=== PATIENT | male | born 1975 | race Hispanic/Latino ===

== ENCOUNTER 2018-01-15 06:59 | Emergency (ER) | payer OTHER ==
[~2018-01-15] VITALS: Ht 177.8 cm; Wt 105.2 kg
--- NOTE | 2018-01-15 07:13 | ED GI/GU/ABDOMINAL COMPLAINT ---
History of Present Illness General Chief Complaint: Trunk Injury Stated Complaint: ?RIB FRACTURE S/P FALL YESTERDY Source: patient Exam Limitations: no limitations Vital Signs & Intake/Output Vital Signs & Intake/Output Vital Signs Date Time Temp Pulse Resp B/P B/P Pulse O2 O2 Flow FiO2 Mean Ox Delivery Rate 01/15 0938 98.0 60 18 141/90 97 Room Air 01/15 0702 98.3 67 16 149/83 98 Room Air Allergies Coded Allergies: No Known Allergies (01/15/18) Reconcile Medications Oxycodone HCl/Acetaminophen (Percocet 5-325 MG Tablet) 5 MG-325 MG TABLET 1-2 TAB PO Q6P PRN PAIN Triage Note: PT STATES THAT WHILE RIDING LAWN MACHINE AT WORK YESTERDAY THE MACHINE TIPPED AND HE FELL OFF ONTO TO HIS R SIDE, COMPLAINS OF R SIDE RIB PAIN THAT HAS BEEN CONSTANT, PAIN INCREASES WITH COUGHING AND MOVEMENT Triage Nurses Notes Reviewed? yes HPI: Patient was at work yesterday on a riding mower when the mower tipped and he and the mower pulled down an embankment. Patient felt fine at first but by the time he got home he began to develop a sharp pain on the right side of his abdomen. The pain steadily increased throughout the night. The pain is currently a 10 out of 10 and increases with movement and coughing. The pain radiates up into his right lower chest. He denies any shortness of breath. There is no nausea or vomiting. There is no dysuria or hematuria. He denies any head injury or headache. There is no neck pain. There is no weakness or numbness. Past History Travel History Traveled to [place] past 21 day No Medical History Any Pertinent Medical History? none Neurological: NONE EENT: NONE Cardiovascular: NONE Respiratory: NONE Gastrointestinal: NONE Hepatic: NONE Renal: NONE Musculoskeletal: NONE Psychiatric: NONE Endocrine: NONE Blood Disorders: NONE Cancer(s): NONE COURT SECURITY OFFICER/Reproductive: NONE Surgical History Surgical History: non-contributory Psychosocial History What is your primary language Malay Tobacco Use: Never used ETOH Use: denies use Illicit Drug Use: denies illicit drug use Family History Hx Contributory? No Review of Systems Review of Systems Constitutional: Reports: no symptoms. EENTM: Reports: no symptoms. Respiratory: Reports: see HPI, cough. Cardiovascular: Reports: no symptoms. GI: Reports: see HPI, abdominal pain. Genitourinary: Reports: no symptoms. Musculoskeletal: Reports: no symptoms. Skin: Reports: no symptoms. Neurological/Psychological: Reports: no symptoms. Hematologic/Endocrine: Reports: no symptoms. Immunologic/Allergic: Reports: no symptoms. All Other Systems: Reviewed and Negative Physical Exam Physical Exam General Appearance: well developed/nourished, alert, awake, anxious, moderate distress Head: atraumatic, normal appearance Eyes: Bilateral: PERRL, EOMI. Ears, Nose, Throat, Mouth: hearing grossly normal, moist mucous membrane Neck: normal inspection, supple, full range of motion, normal alignment, no midline tenderness Respiratory: normal breath sounds, chest non-tender, no respiratory distress, lungs clear Cardiovascular: regular rate/rhythm, normal peripheral pulses Gastrointestinal: normal bowel sounds, soft, guarding, tenderness Back: normal inspection, normal range of motion, NOCVA TENDERNESS Extremities: normal range of motion, pelvis stable Neurologic/Psych: no motor/sensory deficits, awake, alert, oriented x 3, normal gait, normal mood/affect Skin: intact, normal color, warm/dry, SCRATCH TO RIGHT FLANK Core Measures ACS in differential dx? No Sepsis Present: No Sepsis Focused Exam Completed? No Progress Differential Diagnosis: TRAUMATIC INJURY Plan of Care: Orders Procedure Date/time Status URINALYSIS 01/16 712 Complete LIPASE 01/15 07 Complete COMPREHENSIVE METABOLIC PANEL 01/16 712 Complete CBC WITHOUT DIFFERENTIAL 01/16 712 Complete AMYLASE 01/15 0712 Complete Laboratory Tests 01/15/18 0823: Urine Color YEL, Urine Clarity CLEAR, Urine pH 6.0, Ur Specific [place] 1.020, Urine Protein NEG, Urine Ketones NEG, Urine Nitrite NEG, Urine Bilirubin NEG, Urine Urobilinogen 0.2, Ur Leukocyte Esterase NEG, Ur Microscopic EXAM NOT REQUIRED, Urine Hemoglobin NEG, Urine Glucose NEG 01/15/18 0735: Anion Gap 10, Estimated GFR > 60, BUN/Creatinine Ratio 17.5, Glucose 109 H, Calcium 8.8, Total Bilirubin 0.5, AST 25, ALT 34, Alkaline Phosphatase 103, Total Protein 6.6, Albumin 3.9, Globulin 2.7, Albumin/Globulin Ratio 1.4, Amylase 40, Lipase 84, CBC w Diff NO MAN DIFF REQ, RBC 5.76, MCV 82.0, MCH 27.8, MCHC 33.9, RDW 13.0, MPV 7.9, Gran % 62.7, Lymphocytes % 25.4, Monocytes % 8.4, Eosinophils % 2.9, Basophils % 0.6, Absolute Granulocytes 5.6, Absolute Lymphocytes 2.2, Absolute Monocytes 0.7 H, Absolute Eosinophils 0.3, Absolute Basophils 0 Diagnostic Imaging: Viewed by Me: CT Scan. Discussed w/RAD: CT Scan. Radiology Impression: PATIENT: ILANA BERMUDEZ PRESENT AGE: 42 PATIENT ACCOUNT NO: [id number] : 73 LOCATION: [facility] ORDERING PHYSICIAN: Rudolph Bourgeois MD SERVICE DATE: 01/15/18 EXAM TYPE: CAT - CT ABD & PELVIS W IV CONTRAST; CT CHEST W IV CONTRAST EXAMINATION: CT CHEST WITH CONTRAST CT ABDOMEN AND PELVIS WITH CONTRAST CLINICAL INFORMATION: Trauma. Right-sided chest and abdominal pain. COMPARISON: Chest x-ray of 10/22/2012. TECHNIQUE: Multidetector volumetric CT imaging of the chest, abdomen and pelvis was acquired following intravenous administration of 94 mL of Optiray 320. Post processing was performed at a dedicated workstation. Multiplanar reformatted images are submitted. DLP: 882.23 mGy-cm FINDINGS: CHEST: The visualized thyroid gland is unremarkable. There is no evidence of pathologically enlarged mediastinal, hilar or axillary lymph nodes. A right paratracheal lymph node measures 0.8 cm in short axis. There is no evidence of mediastinal vascular injury. Cardiac size is normal. Aorta and central pulmonary arteries are normal in caliber and well opacified. No mediastinal hematoma. No pericardial effusion. Trachea and central bronchi are well patent. No evidence of pleural effusions. The chest wall soft tissues are unremarkable. No pneumothorax. A small, ill- defined pleural ground-glass opacity is noted in the right upper lobe centrally measuring 0.5 x 0.5 x 0.9 cm (series 5, image 146; series 602, image 52). A few tiny nodular densities are noted in the left upper lobe centrally (series 5, images 186 through 196). ABDOMEN AND PELVIS: The liver is normal in size, shape and attenuation. No focal liver lesion or biliary ductal dilatation. The gallbladder is unremarkable without evidence of radiopaque stones, wall thickening or pericholecystic inflammatory changes. The spleen, adrenal glands and pancreas are unremarkable. The kidneys are normal in size, shape and attenuation. There is symmetrical enhancement of the kidneys. No radiopaque urinary tract calculi, hydroureteronephrosis or perinephric stranding. The urinary bladder is unremarkable. Prostate and seminal vesicles are unremarkable. The colon is normal in caliber. No evidence of colonic wall thickening or pericolonic fat stranding. An appendix is normal. The small bowel and stomach are not dilated. There is no evidence of free intraperitoneal air or fluid. No pathologically enlarged lymph nodes are noted. The vasculature is unremarkable. No evidence of acute contrast extravasation. There are small bilateral fat- containing inguinal hernias, left larger than right measuring 3.3 cm. OSSEOUS STRUCTURES: There is no evidence of acute osseous abnormality in the chest, abdomen and pelvis. 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 Mild degenerative changes in the upper to mid thoracic spine. Mild degenerative changes are noted at L5-S1 with moderate narrowing of the disc space, posterior disc osteophyte complex and vacuum disc phenomenon. IMPRESSION: 1. No evidence of acute traumatic injury in the chest, abdomen and pelvis. 2. A 0.5 x 0.5 x 0.9 cm ground-glass opacity in the right upper lobe and a few tiny nodular opacities in the left upper lobe are nonspecific and likely inflammatory/infectious in etiology. According to the UPDATED 2017 Fleischner Society recommendations, the advised follow up imaging for a single pure ground-glass nodule measuring 6 mm or greater is: CT at 6-12 months to confirm persistence, then CT every 2 years until 5 years if it persists. DICTATED BY: Nidhi Fry MD DATE/TIME DICTATED:01/15/18943 COMMERCIAL SALES DIRECTOR:JASVIR DATE/TIME TRANSCRIBED:01/15/18943 CONFIDENTIAL, DO NOT COPY WITHOUT APPROPRIATE AUTHORIZATION. <Electronically signed in Other Vendor System> SIGNED BY: Nidhi Fry MD 01/15/18 1017 Initial ED EKG: none Comments: PT HAS BEEN UPDATED ON LAB AND CT RESULTS. PT IS STABLE FOR DISCAHRGE Departure Departure Disposition: HOME OR SELF CARE Condition: Stable Clinical Impression Primary Impression: Abdominal pain, unspecified site Secondary Impressions: Chest wall pain Additional Instructions: RETURN IF SYMPTOMS WORSEN OR FOR ANY CONCERNS RETURN IF YOU FEEL SHORTENSS F BREATH OR FOR ANY CONCERNS Departure Forms: Customer Survey General Discharge Information Industrial Accident Report Prescriptions: Current Visit Scripts Oxycodone HCl/Acetaminophen (Percocet 5-325 MG Tablet) 1-2 TAB PO Q6P PRN PAIN #12 TAB
[2018-01-15 07:41] LABS: ABSOLUTE BASOPHIL COUNT 0 /CUMM (0.0-0.2); ABSOLUTE EOSINOPHIL COUNT 0.3 /CUMM (0.0-0.7); ABSOLUTE GRANULOCYTE CT 5.6 /CUMM (1.4-6.5); ABSOLUTE LYMPH COUNT 2.2 /CUMM (1.2-3.4); ABSOLUTE MONOCYTE COUNT 0.7 /CUMM (0.10-0.60); BASOPHIL % 0.6 % (0.0-2.0); EOSINOPHIL % 2.9 % (0-5); GRANULOCYTE % 62.7 % (42.2-75.2); HEMATOCRIT 47.3 % (42-52); MEAN CORPUSCULAR HGB 27.8 PG (27.0-31.0); MEAN CORPUSCULAR HGB CONC 33.9 G/DL (33.0-37.0); MEAN PLATELET VOLUME 7.9 FL (7.4-10.4); PLATELET COUNT 260 /CUMM (130-400); RED BLOOD CELL CT 5.76 /CUMM (4.70-6.10); WHITE BLOOD CELL COUNT 8.9 /CUMM (4.8-10.8)
[2018-01-15 09:38] VITALS: BP 141/90
--- NOTE | 2018-01-15 10:17 | CT SCAN REPORT ---
EXAMINATION: CT CHEST WITH CONTRAST CT ABDOMEN AND PELVIS WITH CONTRAST CLINICAL INFORMATION: Trauma. Right-sided chest and abdominal pain. COMPARISON: Chest x-ray of 10/22/2012. TECHNIQUE: Multidetector volumetric CT imaging of the chest, abdomen and pelvis was acquired following intravenous administration of 94 mL of Optiray 320. Post processing was performed at a dedicated workstation. Multiplanar reformatted images are submitted. DLP: 882.23 mGy-cm FINDINGS: CHEST: The visualized thyroid gland is unremarkable. There is no evidence of pathologically enlarged mediastinal, hilar or axillary lymph nodes. A right paratracheal lymph node measures 0.8 cm in short axis. There is no evidence of mediastinal vascular injury. Cardiac size is normal. Aorta and central pulmonary arteries are normal in caliber and well opacified. No mediastinal hematoma. No pericardial effusion. Trachea and central bronchi are well patent. No evidence of pleural effusions. The chest wall soft tissues are unremarkable. No pneumothorax. A small, ill-defined pleural ground-glass opacity is noted in the right upper lobe centrally measuring 0.5 x 0.5 x 0.9 cm (series 5, image 146; series 602, image 52). A few tiny nodular densities are noted in the left upper lobe centrally (series 5, images 186 through 196). ABDOMEN AND PELVIS: The liver is normal in size, shape and attenuation. No focal liver lesion or biliary ductal dilatation. The gallbladder is unremarkable without evidence of radiopaque stones, wall thickening or pericholecystic inflammatory changes. The spleen, adrenal glands and pancreas are unremarkable. The kidneys are normal in size, shape and attenuation. There is symmetrical enhancement of the kidneys. No radiopaque urinary tract calculi, hydroureteronephrosis or perinephric stranding. The urinary bladder is unremarkable. Prostate and seminal vesicles are unremarkable. The colon is normal in caliber. No evidence of colonic wall thickening or pericolonic fat stranding. An appendix is normal. The small bowel and stomach are not dilated. There is no evidence of free intraperitoneal air or fluid. No pathologically enlarged lymph nodes are noted. The vasculature is unremarkable. No evidence of acute contrast extravasation. There are small bilateral fat-containing inguinal hernias, left larger than right measuring 3.3 cm. OSSEOUS STRUCTURES: There is no evidence of acute osseous abnormality in the chest, abdomen and pelvis. 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 Mild degenerative changes in the upper to mid thoracic spine. Mild degenerative changes are noted at L5-S1 with moderate narrowing of the disc space, posterior disc osteophyte complex and vacuum disc phenomenon. IMPRESSION: 1. No evidence of acute traumatic injury in the chest, abdomen and pelvis. 2. A 0.5 x 0.5 x 0.9 cm ground-glass opacity in the right upper lobe and a few tiny nodular opacities in the left upper lobe are nonspecific and likely inflammatory/infectious in etiology. According to the UPDATED 2017 Fleischner Society recommendations, the advised follow up imaging for a single pure ground-glass nodule measuring 6 mm or greater is: CT at 6-12 months to confirm persistence, then CT every 2 years until 5 years if it persists.
[2018-01-15] MEDS ORDERED: PERCOCET 5-3251 EACH PO (10:41)
== END 2018-01-15 11:55 ==
LOC: ERH 06:59
PROVIDERS: Emergency Medicine
DX: R10.9 Unspecified abdominal pain (principal); R07.89 Other chest pain; V98.8XXA Other specified transport accidents, initial encounter; Y93.H9 Activity, other involving exterior property and land maintenance, building and construction; Y92.9 Unspecified place or not applicable
CPT/HCPCS: 74177; 81003; 96374; J1885